=== PATIENT | female | born 1960 | race Caucasian/White ===

== ENCOUNTER 2020-08-30 09:05 | Emergency (ER) | payer OTHER, SELFPAY ==
--- NOTE | ~2020-08-30 | XR_ITS ---
XR knee RT min 4V DATE: 08/30/2020 09:34 INDICATION: Posterior right knee pain. No injury. TECHNIQUE: Standing AP and PA views. Lateral view. [place] view. COMPARISON: None FINDINGS: There is severe osteoarthritis at the patellofemoral joint and mild osteoarthritic change a t the lateral compartment. There is mild chondrocalcinosis. No fracture or dislocation, periosteal reaction or bone destruction. IMPRESSION: Osteoarthritis, particularly at patellofemoral joint Chondrocalcinosis Reviewed, dictated and finalized at location B. SUPERVISOR
[2020-08-30 09:17] VITALS: BP 179/73; PULSE 93; RESP 16; TEMP 37.2; O2SAT 98
[2020-08-30 09:18] VITALS: BP 179/73; PULSE 93; RESP 16; TEMP 37.2; O2SAT 98
--- NOTE | 2020-08-30 09:24 | ED.EXTPRO ---
HPI - Extremity Problem General Chief complaint: Extremity Injury, Lower Stated complaint: R LEG INJURY Time Seen by Provider: 08/30/20 09:25 Source: patient and RN notes reviewed Mode of arrival: ambulatory Limitations: no limitations History of Present Illness HPI Narrative: 59-year-old female presents concern for right knee pain. She denies any known injury. Reports yesterday while working on her feet she began having right knee pain. Reports woke up this morning with worsening pain that radiates the back of the knee down the front of the right leg. Reports knee swelling. Denies redness, bruising. Reports pain at rest and pain with ambulation. Reports taking 800 mg ibuprofen every 5 hours. MD Complaint: extremity pain Related Data Home Medications Medication Instructions Recorded Confirmed No Home Medications 08/30/20 08/30/20 Allergies Allergy/AdvReac Type Severity Reaction Status Date / Time No Known Allergies Allergy Unverified 06/03/16 10:49 Review of Systems Review of Systems: Narrative: CONSTITUTIONAL: Denies malaise, chills, sweats, or fever. CARDIOVASCULAR: Denies chest pain, palpitations, or edema. RESPIRATORY: Denies cough or dyspnea. SKIN: Denies abrasion, laceration MUSCULOSKELETAL: Reports right knee pain and swelling NEUROLOGIC: Denies numbness, weakness. All systems reviewed & are unremarkable except as noted in HPI and below PMFSH Comments At time of signature, agree with nursing past medical, surgical, social and family history. There is no relevant family history pertinent to the presenting complaint Exam Narrative: Exam Narrative: GENERAL: Well-appearing, well-nourished, and in no acute distress. HEAD: Normocephalic, atraumatic. EYES: PERRLA, conjunctivae clear NECK: Supple. CHEST: Speaks in full sentences. No respiratory distress. HEART: Regular rate and rhythm. Normal and equal peripheral pulses. EXTREMITIES: Right knee, right lower leg has normal strength and sensation, normal range of motion. Mild edema, no erythema or ecchymosis. 5/5 strength with knee flexion and extension. Normal sensation with sensitivity to light touch and pain. Anterior tenderness. No open wounds, no skin tenting, no devitalized tissue or atrophy, no trophic changes, no obvious deformity, alignment normal, nearby joints and structures intact. Distal pulses palpable and equal bilaterally, skin warm, dry, pink. Capillary refill less than 3 seconds. Lever test, anterior drawer test, Castro test negative SKIN: Warm, dry, no rash. NEURO: Alert and oriented x3. PSYCH: Normal mood and affect Course Course Emergency Course: Patient is aware of diagnosis, understands and agrees to treatment plan. Anticipatory guidance given. Patient agrees to follow-up as directed and is aware of reasons to seek care at the emergency department. Portions of this record may have been created with voice recognition software Vital Signs Vital signs: Vital Signs Temperature 99 F 08/30/20 09:17 Pulse Rate 93 08/30/20 09:17 Respiratory Rate 16 08/30/20 09:17 Blood Pressure 179/73 H 08/30/20 09:17 Pulse Oximetry 98 08/30/20 09:17 Temperature 99 F 08/30/20 09:18 Pulse Rate 93 08/30/20 09:18 Respiratory Rate 16 08/30/20 09:18 Blood Pressure 179/73 H 08/30/20 09:18 Pulse Oximetry 98 08/30/20 09:18 Reviewed. MDM - Extremity (Nontraumatic) MDM Narrative Medical decision making narrative: Patients pain is consistent with musculoskeletal etiology. No signs of neurological or vascular compromise on exam. Compartments and tissues are soft without signs of compartment syndrome. Pain is felt appropriate for further evaluation on an outpatient basis. Imaging Data My impression: Images reviewed, interpreted by radiologist, agree, see report. Radiologist's impression: XR knee RT min 4V DATE: 08/30/2020 09:34 INDICATION: Posterior right knee pain. No injury. TECHNIQUE: Standing AP and PA views. [place]
== END 2020-08-30 10:05 | disposition home or self-care (01) ==
PROVIDERS: Emergency Provider Nurse Practitioner
DX: M11.261 Other chondrocalcinosis, right knee (principal); M17.11 Unilateral primary osteoarthritis, right knee; I10 Essential (primary) hypertension
CPT/HCPCS: 73564; 99203; G0463

== ENCOUNTER 2024-03-29 12:30 | Outpatient (CLI) | payer OTHER, SELFPAY ==
--- NOTE | ~2024-03-29 | XR_ITS ---
EXAMINATION: XR ankle RT min 3V, XR foot RT min 3V DATE: 03/29/2024 13:00 INDICATION: Right foot pain, swelling and bruising post injury TECHNIQUE: 1. Anteroposterior, mortise, additional oblique and lateral view of the right ankle were obtained. 2. Dorsoplantar, two oblique and lateral views of the right foot were obtained. COMPARISON: None. FINDINGS: Mildly comminuted oblique mid diaphyseal fracture of the right fifth metatarsal with 3 mm medial disp lacement. There is suggestion of an additional nondisplaced avulsion fracture at the dorsal lateral c orner of the anterior process of the calcaneus likely involving the footplate of the bifurcate ligame nt. Otherwise normal alignment throughout the right foot and ankle. No other fractures identified. La rge plantar calcaneal spur and small Achilles calcaneal spur. Additional small enthesophyte along the medial malleolus. Mild hypertrophic change consistent with bunion at the medial head of the first me tatarsal. Mild polyarticular osteoarthritis at the right ankle and multiple joints in the mid and for efoot. Mild soft tissue swelling about the lateral aspect of the forefoot. No ankle joint effusion. IMPRESSION: 1. Mildly displaced and mildly comminuted extra articular diaphyseal fracture of the right fifth meta tarsal. 2. Suggestion of a second nondisplaced avulsion fracture at the dorsolateral margin anterior process of the calcaneus likely involving the footplate of the bifurcate ligament. Correlate for additional p oint tenderness at this location. Reviewed, dictated and finalized at location B. IMPRESSION: 1. Mildly displaced and mildly comminuted extra articular diaphyseal fracture o f the right fifth metatarsal. 2. Suggestion of a second nondisplaced avulsion fracture at the dorsolateral ma rgin anterior process of the calcaneus likely involving the footplate of the bi furcate ligament. Correlate for additional point tenderness at this location.
== END 2024-03-29 12:31 | disposition home or self-care (01) ==
PROVIDERS: Visit Provider Nurse Practitioner Family
DX: M79.671 Pain in right foot (principal)
CPT/HCPCS: 73610; 73630

== ENCOUNTER 2024-03-29 14:30 | Emergency (ER) | payer OTHER, SELFPAY ==
[2024-03-29 14:34] VITALS: BP 150/74; PULSE 75; RESP 18; TEMP 36.6; O2SAT 98
--- NOTE | 2024-03-29 16:35 | ED.LOWEXIN ---
HPI - Extremity Injury (Lower) General Chief Complaint: Extremity Injury, Lower <Jackie Alonso APRN - Last Filed: 03/29/24 17:10> Stated Complaint: Right foot pain <Jackie Alonso APRN - Last Filed: 03/29/24 17:10> Time Seen by Provider: 03/29/24 16:25 <Jackie Alonso APRN - Last Filed: 03/29/24 17:10> Focused HPI: Patient is a 63-year-old female who presents to the ER after falling up the steps 4 days ago. She reports her foot turned black and blue within 24 hours. Patient reports she felt like she was stepping on a ball when she walked, then she looked at the bottom of her foot and it was also swollen and discolored. This morning patient went to urgent care where they told her they would not be able to treat her injuries. She had imaging done at an outside facility and then they advised her to come here for further workup. Patient verbalizes she is fearful of needles and does not want any blood work done. Although images were done at outside hospital HOME COORDINATOR asked patient if she was okay with getting further image performed here and she verbalized her consent. Patient denies any chest pain, shortness a breath, one-sided weakness/numbness/tingling. She reports she does not have any medical history that is pertinent to this ER visit. GENERAL: Well-appearing, well-nourished, and in no acute distress. HEAD: Normocephalic, atraumatic. CHEST: Clear to auscultation. ?No respiratory distress. HEART: Regular rate and rhythm.? NEURO: ?Alert and oriented x3. SKIN: RLE wrapped in foam and gauze dressing. Pt's phalanges are all a purplish-red color, but WMS are intact. She does endorse some mild numbness in her RLE. Her right ankle and foot have bruising and ecchymosis. Pulses in RLE palpable but diminished. Patient screened in triage and initial orders placed.? ?Additional care and disposition to be based upon?diagnostic testing and treatment. <Jackie Alonso APRN - Last Filed: 03/29/24 17:10> Related Data Allergies/Adverse Reactions: Allergies Allergy/AdvReac Type Severity Reaction Status Date / Time Penicillins Allergy Unknown Verified 08/31/20 10:21 <Jackie Alonso ELECTRONIC INSTALLER - Last Filed: 03/29/24 17:10> Review of Systems Review of Systems: CONSTITUTIONAL: Denies fever MUSCULOSKELETAL: Reports joint pain, and myalgia. NEUROLOGIC: Denies numbness, or weakness. <Alina Daley PA-C - Last Filed: 03/29/24 17:43> All systems reviewed & are unremarkable except as noted in HPI and below <Alina Daley PA-C - Last Filed: 03/29/24 17:43> PMFSH Past Medical History Medical History: Medical History (Updated 03/29/24 @ 17:41 by Alina Daley PA-C) Degenerative joint disease of knee Right knee pain <Jackie Alonso, ELECTRONIC INSTALLER - Last Filed: 03/29/24 17:10> Surgical History Surgical History: Surgical History (Updated 08/31/20 @ 10:22 by Cristina Hodge) History of arthroscopy of left knee <Jackie Alonso, ELECTRONIC INSTALLER - Last Filed: 03/29/24 17:10> Family History Family History: Family History (Updated 08/31/20 @ 15:31 by Maddy Elaine, RT(R)) Unknown Hypertension Cancer Arthritis Other Lung cancer <Jackie Alonso, ELECTRONIC INSTALLER - Last Filed: 03/29/24 17:10> Social History Social History: Social History (Updated 08/31/20 @ 15:31 by Maddy Elaine, RT(R)) Smoking status: Never smoker Alcohol intake: never Substance use: never Substance use type: does not use Gender identity (if verbalized by the patient): Female <Jackie Alonso, ELECTRONIC INSTALLER - Last Filed: 03/29/24 17:10> Exam Narrative: GENERAL: Well-appearing, well-nourished, and in no acute distress. HEAD: Normocephalic, atraumatic. EYES: EOMI. EXTREMITIES: Moderate bruising and swelling to the right foot. Normal DP pulse. Normal sensation SKIN: Warm, dry, no rash. NEURO: No focal deficits. Alert and oriented x3. PSYCH: Normal mood and affect <Alina Feng
--- NOTE | 2024-03-29 16:43 | PC.NURSE ---
Pt states she doesn't want pain medication because she hasn't ate all day. snack offered to pt and she states she doesn't want anything and will wait until she gets home
== END 2024-03-29 18:04 | disposition home or self-care (01) ==
PROVIDERS: Emergency Provider Physician Assistant; PCP Internal Medicine
DX: S92.351A Displaced fracture of fifth metatarsal bone, right foot, initial encounter for closed fracture (principal); M17.9 Osteoarthritis of knee, unspecified; W10.9XXA Fall (on) (from) unspecified stairs and steps, initial encounter
CPT/HCPCS: 29515; 73610; 73630; 99283; 99284

== ENCOUNTER 2024-04-28 09:51 | Outpatient (CLI) | payer OTHER, SELFPAY ==
--- NOTE | ~2024-04-28 | XR_ITS ---
Right foot Technique: AP, oblique, and lateral views were obtained. Clinical History: Fifth metatarsal fracture COMPARISON: 03/29/2024 Findings: Subacute oblique fracture of the fifth metatarsal shaft present, with possible early callus formation.. Joint spaces are preserved without erosive or degenerative change. Soft tissues are unre markable. Impression: Subacute oblique fracture of fifth metatarsal shaft, mildly displaced, with possible minimal callus f ormation. Reviewed, dictated and finalized at location M. Impression: Subacute oblique fracture of fifth metatarsal shaft, mildly displaced, with pos sible minimal callus formation.
== END 2024-04-28 09:52 | disposition home or self-care (01) ==
PROVIDERS: PCP Internal Medicine; Visit Provider Orthopaedic Surgery
DX: S92.354D Nondisplaced fracture of fifth metatarsal bone, right foot, subsequent encounter for fracture with routine healing (principal); X58.XXXD Exposure to other specified factors, subsequent encounter
CPT/HCPCS: 73630

== ENCOUNTER 2024-09-30 16:52 | Emergency (ER) | payer OTHER, SELFPAY ==
--- NOTE | ~2024-09-30 | CT_ITS ---
CLINICAL INDICATION: Remote history of a fall, now with left hip pain. COMPARISON: None. TECHNIQUE: Computed tomography (CT) of the pelvis was performed without intravenous contrast. The dos e-length product was 668.21 mGy-cm. FINDINGS/OBSERVATIONS: No acute or subacute left hip fracture is appreciated. Redemonstration of sacralization of the L5 vertebral body, possibly representing a subacute fracture for which MRI is recommended. Colonic diverticulosis without surrounding inflammation. The bladder is decompressed. The uterus is atrophic (or surgically absent).. IMPRESSION: No acute or subacute fracture within the left hip, as detailed above. Reviewed, dictated and finalized at location A.
--- NOTE | ~2024-09-30 | CT_ITS ---
History: Remote history of a fall, now with left hip and pelvic pain PROCEDURE: CT lumbar spine without intravenous contrast. COMPARISON: None TECHNIQUE: Multiple contiguous axial images of the lumbar spine were performed without the administration of int ravenous contrast. DLP: 1105 mGy-cm FINDINGS: Sacralization of L5 is identified, for which MRI is suggested, as this could represent remote ruben jimmy fracture with callus formation. Preservation of the normal lordotic curvature of the lumbar spine is identified. No acute compression fractures are present. No soft tissue abnormality is noted. The air-filled appendix is of normal caliber. Fecal stasis within the colon. Impression: Findings at the level of L5/S1 which may represent remote compression fracture with callus formation for which MRI is suggested. Reviewed, dictated and finalized at location A. Impression: Findings at the level of L5/S1 which may represent remote compression fracture with callus formation for which MRI is suggested.
--- OUTSIDE RECORDS SUMMARY | 2024-09-30 16:55 | XMS_ITS | Continuity of Care Document ---
Author Organization [facility] Address [address] [address] [place] [address] Phone Care Team Providers Care Helper Shear Operator Name Role Phone Jasbir Amado MD Unavailable Unavailable Allergies, Adverse Reactions, Alerts Substance Reaction Status Criticality honey Active No Information Medications Medication Instructions Dosage Effective Dates (start - stop) Status Comments Clifton 7.5 mg-325 mg tablet take 1 tablet by oral route 3 times every day as needed for pain as needed 1 tablet - Active avoid driving or operate machines, please disp on 12/10/17 Cymbalta 30 mg capsule,delayed release take 1 capsule by oral route every day 30 MG - Active Norvasc 10 mg tablet take 1 tablet by oral route every day 10 MG - Active Procedures Procedure Date OFFICE/OUTPATIENT VISIT, EST PREV VISIT, EST, AGE 40-64 OFFICE/OUTPATIENT VISIT, EST OFFICE/OUTPATIENT VISIT, EST OFFICE/OUTPATIENT VISIT, EST OFFICE/OUTPATIENT VISIT, EST OFFICE/OUTPATIENT VISIT, EST OFFICE/OUTPATIENT VISIT, EST PREV VISIT, EST, AGE 40-64 OFFICE/OUTPATIENT VISIT, EST OFFICE/OUTPATIENT VISIT, EST OFFICE/OUTPATIENT VISIT, EST OFFICE/OUTPATIENT VISIT, EST OFFICE/OUTPATIENT VISIT, EST OFFICE/OUTPATIENT VISIT, EST OFFICE/OUTPATIENT VISIT, EST OFFICE/OUTPATIENT VISIT, EST OFFICE/OUTPATIENT VISIT, EST PREV VISIT, EST, AGE 40-64 OFFICE/OUTPATIENT VISIT, EST OFFICE/OUTPATIENT VISIT, EST OFFICE/OUTPATIENT VISIT, EST OFFICE/OUTPATIENT VISIT, EST OFFICE/OUTPATIENT VISIT, EST OFFICE/OUTPATIENT VISIT, EST OFFICE/OUTPATIENT VISIT, EST OFFICE/OUTPATIENT VISIT, EST Advance Directives Directive Yes / No Effective Date File Name No Information Encounters Encounter Description Practice Location Reason(s) For Visit Diagnoses Date Provider Providers Copied on Encounter [facility], [address], [address], tel:[phone] [facility] No Information 8 Aneudy Hamilton [address] [place], [address] , [place]. tel:[phone] OFFICE/OUTPA TIENT VISIT, [facility], [address] [place], [place], [address], [place] tel:[phone] [facility] chronic pain (chief complaint)thyr oid (chief complaint)HTN (chief complaint)anxi ety1 (chief complaint)sick 1 (chief complaint) Essential (primary) hypertensionHyp othyroidismGene ralized Anxiety DisorderChronic pain syndromeDiarrhe a [address], [address] , [place]. tel:[phone] Referring Provider: Christine Mensah A, [place], [address]. tel:[phone] PREV VISIT, EST, AGE 40-64 [facility], [address], [address], [place] tel:[phone] [facility] PHysical (chief complaint) Encounter for general adult medical exam w abnormal findingsChronic pain syndromeGeneral ized Anxiety DisorderEssenti al (primary) hypertension 0 8 Aneudy Hamilton [address], [place], [place], [address] , [place]. tel:[phone] OFFICE/OUTPA TIENT VISIT, [facility], [address], [place], [place], [address], [place] tel:[phone] [facility] chronic pain (chief complaint)thyr oid1 (chief complaint)HTN (chief complaint)anxi ety1 (chief complaint) Essential (primary) hypertensionGen eralized Anxiety DisorderChronic pain syndromeHypothy roidism 8 Aneudy Martell. [address], [address], [place], [place], [address] , [place]. tel:[phone] Referring Provider: Christine Mensah [facility] A, [place], [place], [address]. 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 [address], [place], [place], [address] , [place]. 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 [address], [place], [place], [address] , [place]. tel:[phone] Referring Provider: Christine Mensah [facility] A, [place], [address]. 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 [address], [place], [place], [address] , [place]. tel:[phone] Referring Provider: Christine Mensah [address], [place], [place], [address]. tel:[phone] OFFICE/OUTPA TIENT VISIT, EST [facility], [address], [place], [place], [address], [place] tel:[phone] [facility] HTN (chief complaint)foot and knee pain1 (chief complaint)obes ity1 (chief complaint) Essential (primary) hypertensionIns omniaBody mass index (BMI) 40.0-44.9, adultChronic pain syndrome 7 Aneudy Martell. [address], [place], [place], [address] , [place]. tel:[phone] Referring Provider: Christine Mensah [address], [place], [place], [address]. tel:[phone] PREV VISIT, EST, AGE 40-64 [facility], [address], [place], [place], [address], [place] tel:[phone] [facility] Physical (chief complaint) Encounter for general adult medical exam w abnormal findingsEssenti al (primary) hypertensionPla ntar fasciitisPain in joint 7 Aneudy Martell. [address], [place], [place], [address] , [place]. tel:[phone] Referring Provider: Jasbir Amado [address], [place], [place], [address]. 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 [address], [place], [place], [address] , [place]. tel:[phone] OFFICE/OUTPA TIENT VISIT, [facility], [address], [place], [address], [place] tel:[phone] [facility] HTN (chief complaint)pain (chief complaint)UTI1 (chief complaint) Essential (primary) hypertensionChr onic pain syndromeUrinary tract infection 6 Aneudy Martell. [address], [place], [place], [address] , [place]. tel:[phone] Referring Provider: Christine Mensah [address], [place], [address]. 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 [address], [place], [place], [address] , [place]. tel:[phone] Referring Provider: Christine Mensah [address], [place], [place], [address]. tel:[phone] OFFICE/OUTPA TIENT VISIT, [facility], [address], [place], [address], [place] tel:[phone] [facility] chronic pain (chief complaint) Essential (primary) hypertensionChr onic pain syndrome 6 Aneudy Martell. [address], [place], [address] , [place]. tel:[phone] Referring Provider: Christine Mensah [address], [place], [place], [address]. tel:[phone] OFFICE/OUTPA TIENT VISIT, [facility], [address], [place], [address], [place] tel:[phone] [facility] chronic pain1 (chief complaint)sick 1 (chief complaint)HTN1 (chief complaint) Other chronic painUpper respiratory infectionEssent ial (primary) hypertension 5 5 Aneudy Martell. [address], [place], [place], [address] , [place]. tel:[phone] Referring Provider: Christine Mensah [address], [place], [address]. tel:[phone] OFFICE/OUTPA TIENT VISIT, [facility], [address], [place], [address], [place] tel:[phone] [facility] chronic pain (chief complaint) Pain in limb 5 Aneudy Martell. [address], [place], [address] , [place]. tel:[phone] Referring Provider: Christine Mensah [address], [place], [place], [address]. tel:[phone] OFFICE/OUTPA TIENT VISIT, [facility], [address], [place], [address], [place] tel:[phone] [facility] hyperglycemia (chief complaint)hype rglycemia (chief complaint)HTN (chief complaint) Dietary surveillance and counselingPain in limbUnspecified essential hypertensionOth er and unspecified hyperlipidemiaH yperglycemia 5 Aneudy Martell. [address], [place], [address] , [place]. tel:[phone] Referring Provider: Christine Mens[address], [place], [address]. tel:[phone] OFFICE/OUTPA TIENT VISIT, EST [facility], [address], [place], [address], [place] [phone] [facility] facial trauma (chief complaint)foot pain (chief complaint)HTN (chief complaint) Other and unspecified injury to face and neckDietary surveillance and counselingHyper tension, UnspecifiedPain in limbOpioid type dependence, unspecified use 5 Aneudy Martell. [address], [place], [place], [address] , [place]. [phone] Referring Provider: Christine Mens[address], [place], [place], [address]. tel:[phone] PREV VISIT, EST, AGE 40-64 [facility], [address], [place], [address], [place] tel:[phone] [facility] Physical (chief complaint) Routine Medical ExamObesity, MorbidRoutine Medical Exam 4 Aneudy Martell. [address], [place], [place], [address] , [place]. tel:[phone] Referring Provider: Christine Mensah [address], [place], [place], [address]. tel:[phone] OFFICE/OUTPA TIENT VISIT, EST [facility], [address], [place], [address], [place] tel:[phone] [facility] chronic pain (chief complaint)HTN (chief complaint) Dietary surveillance and counselingCHRON IC PAIN NECHypertension , Unspecified 4 Aneudy Martell. [address], [place], [place], [address] , [place]. tel:[phone] Referring Provider: Christine Mensah [address], [place], [place], [address]. tel:[phone] OFFICE/OUTPA TIENT VISIT, [facility], [address], [place], [place], [address], [place] tel:[phone] [facility] chronic pain (chief complaint) Dietary surveillance and counselingCHRON IC PAIN NEC 4 Aneudy Martell. [address], [place], [place], [address] , [place]. tel:[phone] Referring Provider: Jasbir Amado, [address], [place], [place], [address]. tel:[phone] OFFICE/OUTPA TIENT VISIT, [facility], [address], [place], [place], [address], [place] tel:[phone] [facility] CHRONIC PAIN (chief complaint) Dietary surveillance and counselingCHRON IC PAIN NEC 4 Aneudy Martell. [address], [place], [place], [address] , [place]. [phone] Referring Provider: Christine Mensah [address], [place], [place], [address]. tel:[phone] OFFICE/OUTPA TIENT VISIT, [facility], [address], [place], [place], [address], [place] tel:[phone] [facility] chronic foot pain (chief complaint) Dietary surveillance and counselingCHRON IC PAIN NEC 3 Aneudy Martell. [address], [place], [place], [address] , [place]. [phone] Referring Provider: Christine Mensah [address], [place], [address]. tel:[phone] OFFICE/OUTPA TIENT VISIT, [facility], [address], [place], [address], [place] tel:[phone] [facility] heel pain (chief complaint) Dietary surveillance and counselingCHRON IC PAIN NEC 3 Aneudy Martell. [address], [place], [address] , [place]. [phone] Referring Provider: Christine Mensah [address], [place], [place], [address]. tel:[phone] OFFICE/OUTPA TIENT VISIT, [facility], [address], [place], [address], [place] tel:[phone] [facility] Heel pain (chief complaint) Dietary surveillance and counselingCHRON IC PAIN NEC 3 Aneudy Martell. [address], [place], [place], [address] , [place]. tel:[phone] Referring Provider: Jasbir Amado [address], [place], [place], [address]. tel:[phone] OFFICE/OUTPA TIENT VISIT, [facility], [address], [place], [address], [place] tel:[phone] [facility] stressed out (chief complaint) Dietary surveillance and counselingGener alized anxiety disorder 3 Aneudy Martell. [address], [place], [place], [address] , [place]. tel:[phone] Referring Provider: Christine Mensah [address], [place], [place], [address]. tel:[phone] OFFICE/OUTPA TIENT VISIT, [facility], [address], [place], [address], [place] tel:[phone] [facility] heel pain (chief complaint) Dietary surveillance and counselingCHRON IC PAIN NEC 2 Aneudy Martell. [address], [place], [place], [address] , [place]. tel:[phone] Family History Family Member Type Diagnosis Age At Onset Father Problem (finding) Cancer, lung Brother Problem (finding) Alive and well Mother Problem (finding) RA, Payers Payer name Insurance type Covered alliance party ID Authoriza tion(s) No Information Social History Type Description Quantity Date Captured Comments Sex Female Smoking Status No Information Chief Complaint And Reason For Visit No Information Plan Of Treatment Date Type Action Status Goal Lipid panel. Due on 018 due Goal Influenza vaccine. Due on due Goal Pap/HPV testing. Due on due Goal Depression screening. Due on due Goal Td vaccine. Due on 18 due Goal Mammogram. Due on 8 due Goal Colonoscopy. Due on due Goal Sigmoidoscopy. Due on due Goal Tdap. Due on due Goal FOBT. Due on due Goal Special diet education compl eted Goal FOBT. Due on due Goal Tdap. Due on due Goal Sigmoidoscopy. Due on due Goal Colonoscopy. Due on due Goal Mammogram. Due on 8 due Goal Td vaccine. Due on 18 due Goal Depression screening. Due on due Goal Pap/HPV testing. Due on due Goal Influenza vaccine. Due on due Goal Lipid panel. Due on due Goal Special diet education compl eted Goal Influenza vaccine. Due on due Goal Pap/HPV testing. Due on due Goal Depression screening. Due on due Goal Td vaccine. Due on 18 due Goal Mammogram. Due on 8 due Goal Colonoscopy. Due on due Goal Sigmoidoscopy. Due on due Goal Tdap. Due on due Goal FOBT. Due on due Goal FOBT. Due on due Goal Tdap. Due on due Goal Mammogram. Due on due Goal Pap/HPV testing. Due on due Goal Colonoscopy. Due on due Goal Sigmoidoscopy. Due on due Goal Influenza vaccine. Due on due Goal Td vaccine. Due on due Goal Depression screening. Due on due Goal Td vaccine. Due on due Goal Tdap. Due on due Goal FOBT. Due on due Goal Colonoscopy. Due on due Goal Influenza vaccine. Due on due Goal Sigmoidoscopy. Due on due Goal Depression screening. Due on due Goal Pap/HPV testing. Due on due Goal Mammogram. Due on due Goal Colonoscopy. Due on due Goal Tdap. Due on due Goal Mammogram. Due on due Goal Pap/HPV testing. Due on due Goal FOBT. Due on due Goal Sigmoidoscopy. Due on due Goal Depression screening. Due on due Goal Influenza vaccine. Due on due Goal Td vaccine. Due on due Goal Colonoscopy. Due on due Goal Sigmoidoscopy. Due on due Goal Depression screening. Due on due Goal Influenza vaccine. Due on due Goal Tdap. Due on due Goal FOBT. Due on due Goal Pap/HPV testing. Due on due Goal Td vaccine. Due on 17 due Goal Mammogram. Due on 7 due Goal Influenza vaccine. Due on due Goal Mammogram. Due on due Goal Colonoscopy. Due on 017 due Goal FOBT. Due on due Goal Tdap. Due on due Goal Td vaccine. Due on 17 due Goal Pap/HPV testing. Due on due Goal Sigmoidoscopy. Due on due Goal Depression screening. Due on due Goal Depression screening. Due on due Goal Td vaccine. Due on 16 due Goal Sigmoidoscopy. Due on due Goal Colonoscopy. Due on 016 due Goal Pap/HPV testing. Due on due Goal Tdap. Due on due Goal Influenza vaccine. Due on due Goal Mammogram. Due on 6 due Goal FOBT. Due on due Goal Tdap. Due on due Goal Depression screening. Due on due Goal Sigmoidoscopy. Due on due Goal Pap/HPV testing. Due on due Goal Mammogram. Due on 6 due Goal Td vaccine. Due on 16 due Goal Influenza vaccine. Due on due Goal FOBT. Due on due Goal Colonoscopy. Due on due Goal Influenza vaccine. Due on due Goal Mammogram. Due on 6 due Goal Tdap. Due on due Goal FOBT. Due on due Goal Pap/HPV testing. Due on due Goal Sigmoidoscopy. Due on due Goal Td vaccine. Due on 16 due Goal Depression screening. Due on due Goal Colonoscopy. Due on due Goal Pap/HPV testing. Due on due Goal Tdap. Due on due Goal FOBT. Due on due Goal Colonoscopy. Due on due Goal Sigmoidoscopy. Due on due Goal Influenza vaccine. Due on due Goal Depression screening. Due on due Goal Td vaccine. Due on 16 due Goal Mammogram. Due on 6 due Goal Sigmoidoscopy. Due on due Goal Mammogram. Due on 5 due Goal FOBT. Due on due Goal Pap/HPV testing. Due on due Goal Td vaccine. Due on 15 due Goal Colonoscopy. Due on due Goal Depression screening. Due on due Goal Influenza vaccine. Due on due Goal Tdap. Due on due Goal Sigmoidoscopy. Due on due Goal Depression screening. Due on due Goal Tdap. Due on due Goal FOBT. Due on due Goal Pap/HPV testing. Due on due Goal Mammogram. Due on due Goal Influenza vaccine. Due on due Goal Colonoscopy. Due on due Goal Td vaccine. Due on 15 due Goal Colonoscopy. Due on due Goal Mammogram. Due on due Goal Depression screening. Due on due Goal FOBT. Due on due Goal Influenza vaccine. Due on due Goal Pap/HPV testing. Due on due Goal Sigmoidoscopy. Due on due Goal Td vaccine. Due on 15 due Goal Tdap. Due on due Referral Ordered: KNEE XRAY TWO-VIEW Bilateral ordered Referral Ordered: FOOT XRAY, TWO VIEW ordered History Of Present Illness Encounter Date Complaint History Of Prese nt Illness sick1 Pt c/o low pelvi c pain within 15 mins post food and she has nonbloody diarrhea afterward for the past several weeks. Pt denies any nausea, vomiting, upper abdominal pain. Pt feels crampy type of pain. pt denies any sick contact Pt denies any recent travel. chronic pain Pt has chronic f oot and ankle pain. Pt has overuse injury thyroid Pt has normal TS H and tpo HTN Her BP is stable with norvasc anxiety1 Pt has chronic a nxiety and depression. Pt states that cymbalta helps. Pt denies any suicidal or homicidal thought. Pt denies any crying spells PHysical Pt needs annual physical. Pt has chronic knee and ankle and foot pain Pt has arthritis on her knee. pt could not afford x-rays pt is noncompliant with norvasc. Her BP is high. Pt has not been taking it. Pt also has anxiety and depression due to stress. Pt denies any suicidal or homicidal thought. Pt has not been taking cymbalta. Pt denies any other complaints. anxiety1 Pt has anxiety a nd depression. Pt has a lot of stress. Pt denies any suicidal or homicidal thought. Pt has crying spells. Her mom is at long term. HTN Pt has HTN. Pt s till not taking norvac daily. Pt denies any chest pain or headache thyroid1 Pt has low thyro id. Pt denies any fatigue or weigth gain. Pt still has not done thyroid lab yet chronic pain Pt has chronic f oot and knee pain. Pt has DDD Pt still has not done xray for her foot yet. 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 Pt denies any swelling anxieyt1 Pt feels very an x[place] and she feels depressed also. her mom is in long term and her daughter is having marital issues. Pt denies any suicidal or homicidal thought. pt has been having crying spells hypothyroidism Pt has low thyro id. Pt denies any fatigue or weight gain. pt still has not done lab yet chronic pain Pt has chronic k nee and foot pain. Pt is a cocktail server all her life. Pt denies any injury. Pt has chronic overuse pain. Pt takes norco PRn for pain. pt denies any other compalints. Pt has not doen knee and foot xray yet. Pt denies any worsening pain. Pt failed NSAID HTN Pt has HTN. Pt d oes not takes norvasc daily. Pt is noncompliant. pt denies any chest pain or headache HTN Pt takes norvasc and her BP is slightly high. Pt denies any chest pain. Pt denies any headache Pt has al ot of stress low thyroid1 Pt has low thyro id. Pt has not done thyroid lab yet. pt denies any fatigue Pt denies any snoring or any trouble with breathing chronic pain Pt has knee and foot pain. Pt takes norco PRN for pain. Pt denies any worsening pain. Pt has not done xray yet. Pt could not afford it. Pt denies any worsenign pain Pt is a cocktail server and is on her feet all day. Pt has ankle and knee pain, Pt denies any swelling or any injury HLP Pt has mild HLP Pt is not any any diet thyroid1 Pt has mild low thyroid. Pt has hard time losing weight. Pt denies any fatigue vitmain D Pt has low vitam in D obesity1 Pt has only took phentermine for 4 days. Pt states that she has some tongue blisters due to stress for 2-3 weeks. Pt denies any bleeding chronic pain1 Pt has chronic k nee and foot pain. Pt still has not done xrays yet. Pt denies any worsenign pain. insomnia1 Pt has insomnia. Pt denies any snoring. Pt has not tried vistaril yet. Pt has severe anxiety due to stress. Her mom is in rehab and she has a lot of stress at home. Pt denies any depression or any suicidal thought obesity1 Pt is obese. Her BMI is over 40. Pt denies any snoring or trouble with breathing at night Pt has some difficulty wfalling alseep. Pt feels fatigue in the morning. No chest pian or sob foot and knee pain1 Pt has chron ic bilateral foot pain Pt has knee pain. Pt denies any swelling or injury Pt denies any wrosening pain Pt works on her feet all day. Pt takes norco for pain pt failed NSAID HTN Pt has HTN. Pt d enies any chest pain or headache. Pt has not been taking norvasc for several week. Pt feels stressed out and anxious about her mom situation and she just forgot about it. Physical Pt needs annual physical. Pt has chornic bilateral knee and bilatearl foot pain due to overuse. Pt c/o painful bottom of left foot pain for 3 weeks. Pt denies any injury. Pt states that the pain is worse after weight bearing all day. Pt has HTN. Pt takes norvasc and her BP is stable. Pt denies any other complaints HTN Pt takes norvsc and her BP is stable. Pt denies any swelling or chest pain chronic pain Pt has chornic a nkle and foot pain. Pt is a cocktail server and she has chornic overuse injury. Pt still has not done xray yet. Pt denies any wrosening pain HTN Pt has not been taking norvasc. Her BP is slightly high Pt denies any chest pain or headache pain Pt has chronic f oot and ankle pain. Pt does not have insurance and unable to afford xrays. Pt works as a cocktail server and is on her feet frequently UTI1 Pt c/u buring, f requency with urination for 4 days. pt denies any abd pain or flank pain. Pt is taking OTC azors chronic pain Pt has chronic f oot and ankle pain. Pt taeks pain meds. Pt canot afford xrays. Pt denies any wrosenign pain. Pt is a cocktail server and works on her feet all day HTN Pt has HTN. Pt d enies any chest pain or headache. Pt used to take BP meds but not anymore. chronic pain Pt has chronic a nkle and foot and knee pain. Pt takes pain meds Pt denies any NSAID Pt has not done xray yet. Pt denies any wrosening pain. Pt denies any swelling HTN1 Pt has not been taking lisinopril for 3 months. Her BP is good today sick1 Pt has been sick for two weeks with sinus congestion, sore throat, coughing up green phlem, chill, etc. Pt has been taking OTC meds but not working. Pt denies any fever chronic pain1 Pt has chornic b ilateral knee and ankle pain. Pt denies any worening pain. Pt denies any swelling. Pt is a cocktail server and she is on her feet all day at work. chronic pain Pt has chronic b oth knee pain Pt had history of left knee surgery. Pt has chornic bilateral ankle pain. Pt denies any worsening pain. Pt denies any injury HTN Pt has HTN. Pt t akes lisinopril. Her BP is high today. Pt denies any chest pain or headahe hyperglycemia Pt has mild hype rglycemia. Pt denies any polyuria, polydipsia hyperglycemia Pt has chronic f oot pain. Pt denies any worsening pain Instructions Date Instruction Additional Infor mation Special diet education Related t o Body mass index (BMI) 39.0-39.9, adult Increase activity. Related to Es sential (primary) hypertension Follow a low sodium diet. Relate d to Essential (primary) hypertension Weight management Related to Enc ounter for general adult medical exam w abnormal findings Increase physical activity Relat ed to Encounter for general adult medical exam w abnormal findings Special diet education Related t o Body mass index (BMI) 40.0-44.9, adult Follow a low sodium diet. Relate d to Essential (primary) hypertension Prescribed Activity and Exercise Education Related to Dietary Surveillance and Counseling Prescribed Diet Educ ation/Lifestyle Education Regarding Diet Related to Dietary Surveillance and Counseling Increase activity. Related to Es sential (primary) hypertension Prescribed Diet Educ ation/Lifestyle Education Regarding Diet Related to Dietary Surveillance and Counseling Increase physical activity Relat ed to Hypothyroidism Weight management Related to Hyp othyroidism Prescribed Activity and Exercise Education Related to Dietary Surveillance and Counseling Follow a low sodium diet. Relate d to Essential (primary) hypertension Increase activity. Related to Es sential (primary) hypertension Prescribed Diet Educ ation/Lifestyle Education Regarding Diet Related to Dietary Surveillance and Counseling Prescribed Activity and Exercise Education Related to Dietary Surveillance and Counseling Prescribed Activity and Exercise Education Related to Dietary Surveillance and Counseling Prescribed Diet Educ ation/Lifestyle Education Regarding Diet Related to Dietary Surveillance and Counseling Increase activity. Related to Hy perlipidemia Follow a low sodium diet. Relate d to Hyperlipidemia Prescribed Activity and Exercise Education Related to Dietary Surveillance and Counseling Prescribed Diet Educ ation/Lifestyle Education Regarding Diet Related to Dietary Surveillance and Counseling Prescribed Activity and Exercise Education Related to Dietary Surveillance and Counseling Prescribed Diet Educ ation/Lifestyle Education Regarding Diet Related to Dietary Surveillance and Counseling Prescribed Activity and Exercise Education Related to Dietary Surveillance and Counseling Prescribed Diet Educ ation/Lifestyle Education Regarding Diet Related to Dietary Surveillance and Counseling Prescribed Activity and Exercise Education Related to Dietary Surveillance and Counseling Prescribed Diet Educ ation/Lifestyle Education Regarding Diet Related to Dietary Surveillance and Counseling Prescribed Activity and Exercise Education Related to Dietary Surveillance and Counseling Prescribed Diet Educ ation/Lifestyle Education Regarding Diet Related to Dietary Surveillance and Counseling Prescribed Activity and Exercise Education Related to Dietary Surveillance and Counseling Prescribed Diet Educ ation/Lifestyle Education Regarding Diet Related to Dietary Surveillance and Counseling Prescribed Diet Educ ation/Lifestyle Education Regarding Diet Related to Dietary Surveillance and Counseling Prescribed Activity and Exercise Education Related to Dietary Surveillance and Counseling Prescribed Diet Educ ation/Lifestyle Education Regarding Diet Related to Dietary Surveillance and Counseling Prescribed Activity and Exercise Education Related to Dietary Surveillance and Counseling Physical activity counseling Rel ated to Dietary surveillance counseling Physical activity counseling Rel ated to Dietary surveillance counseling Decrease caloric intake Related to Dietary surveillance counseling Dietary counseling Related to Mo rbid obesity, BMI 40 or more Decrease caloric intake Related to Morbid obesity, BMI 40 or more Dietary counseling Related to Di etary surveillance counseling Decrease caloric intake Related to Dietary surveillance counseling Dietary counseling Related to Di etary surveillance counseling Decrease caloric intake Related to Dietary surveillance counseling Decrease caloric intake Related to Dietary surveillance counseling Dietary counseling Related to Di etary surveillance counseling Dietary counseling Related to Di etary surveillance counseling Decrease caloric intake Related to Dietary surveillance counseling Dietary counseling Related to Di etary surveillance counseling Decrease caloric intake Related to Dietary surveillance counseling Dietary counseling Related to Di etary surveillance counseling Decrease caloric intake Related to Dietary surveillance counseling Dietary counseling Related to Di etary surveillance counseling Decrease caloric intake Related to Dietary surveillance counseling Dietary counseling Related to Di etary surveillance counseling Decrease caloric intake Related to Dietary surveillance counseling Assessments Type Assessment Date No Information
[2024-09-30 17:47] VITALS: BP 147/84; PULSE 100; RESP 16; TEMP 36.7; O2SAT 100
--- NOTE | 2024-09-30 17:52 | ED_ITS ---
HPI - Extremity Injury (Lower) General Chief Complaint: Extremity Injury, Lower <Hannah Cronin PA-C - Last Filed: 09/30/24 18:09> Stated Complaint: Pain left hip-poss Sciatica-fell 3 weeks ago <ARJUN Lu Last Filed: 09/30/24 18:09> Time Seen by Provider: 09/30/24 17:52 <ARJUN Lu Last Filed: 09/30/24 18:09> Focused HPI: Patient is a 63-year-old female who presents the ED with report of left hip pain. Patient reports she slipped in the mud and fell 3 weeks ago, landing directly on her buttocks. Has been having pain throughout her left posterior hip /pelvic region/lower back since then. 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 Has been taking leftover tramadol as needed for pain. Has not had anything further for pain. Denies numbness, bowel or bladder incontinence, saddle anesthesia. GENERAL: Mildly uncomfortable-appearing, obese with BMI of 36.7, and in no acute distress. HEAD: Normocephalic, atraumatic. CHEST: Clear to auscultation. ?No respiratory distress. HEART: Regular rate and rhythm.? MSK: TTP in L posterior hip/pelvic/SI region. No midline spinal tenderness. No palpable bony deformities or step-offs. Sensation intact. NEURO: ?Alert and oriented x3. Patient screened in triage and initial orders placed.? ?Additional care and disposition to be based upon?diagnostic testing and treatment. <Hannah Cronin PA-C - Last Filed: 09/30/24 18:09> Source: patient <ARJUN Lu Last Filed: 09/30/24 18:09> Mode of arrival: ambulatory <ARJUN Lu Last Filed: 09/30/24 18:09> Limitations: no limitations <ARJUN Lu Last Filed: 09/30/24 18:09> History of Present Illness HPI Narrative: Patient is a 63-year-old female who presents emergency department chief complaint of left hip pain. Patient reports the pain is right over her iliac crest patient denies saddle anesthesia denies bowel or bladder incontinence denies footdrop. The patient states that the pain has become severe reports that it is difficult ambulated times and reports that it is worse whenever she sits down <Suleman Starr MD - Last Filed: 09/30/24 20:55> Related Data Home Medications: Home Medications ?Medication ?Instructions ?Recorded ?Confirmed ?Last Taken ?Type tramadol 25 mg tablet 25 mg PO Q6H PRN 05/26/24 05/26/24 Unknown History <Hannah Cronin PA-C - Last Filed: 09/30/24 18:09> Allergies/Adverse Reactions: Allergies Allergy/AdvReac Type Severity Reaction Status Date / Time Penicillins Allergy Unknown Verified 09/30/24 16:54 <Hannah Cronin PA-C - Last Filed: 09/30/24 18:09> Review of Systems Review of Systems: A 10 system review of systems was completed on the patient and is negative except for what is stated in the HPI. Nursing and ancillary documentation was reviewed. <Suleman Starr MD - Last Filed: 09/30/24 20:55> PMFSH Past Medical History Medical History: Medical History Degenerative joint disease of knee Right knee pain <Hannah Cronin PA-C - Last Filed: 09/30/24 18:09> Surgical History Surgical History: Surgical History History of arthroscopy of left knee <Hannah Cronin PA-C - Last Filed: 09/30/24 18:09> Family History Family History: Family History Unknown Hypertension Cancer Arthritis Other Lung cancer <Hannah Cronin PA-C - Last Filed: 09/30/24 18:09> Social History Social History: Social History Smoking status: Never smoker Alcohol intake: never Substance use: never Substance use type: does not use Do You Feel Safe in your Home?: Yes Lack of Transportation: No Lack of Food: Never True Current Housing: I Have Housing Concerned About Future Housing: No Difficulty Paying Gas/Electric Bills: No Difficulty Paying for Meds: No Currently Unemployed: No Education: High School Diploma/GED Difficulty w/ Childcare or Family Care: No Gender identity (if verbalized by the patient): Female <Hannah Cronin PA-C - Last Filed: 09/30/24 18:09> Exam Narrative: GENERAL: Well-appearing, well-nourished, and in no acute distress. HEAD: Normocephalic, atraumatic. EYES: PERRLA and EOMI. ENT: Nares clear, no rhinorrhea or epistaxis. Mucous membranes moist. NECK: Supple. CHEST: Clear to auscultation. No respiratory distress. HEART: Regular rate and rhythm. No murmur heard. Normal peripheral pulses. ABDOMEN: Soft, nontender, nondistended, normal active bowel sounds. EXTREMITIES: Normal range of motion. No edema. SKIN: Warm, dry, no rash. NEURO: No focal deficits. Alert and oriented x3. No saddle anesthesia PSYCH: Normal mood and affect. <Suleman Starr MD - Last Filed: 09/30/24 20:55> Course Vital Signs Vital signs: Vital Signs Temperature 36.7 C 09/30/24 17:47 Pulse Rate 100 09/30/24 17:47 Respiratory Rate 16 09/30/24 17:47 Blood Pressure 147/84 H 09/30/24 17:47 Pulse Oximetry 100 09/30/24 17:47 Oxygen Delivery Room Air 09/30/24 17:47 Temperature 36.7 C 09/30/24 17:47 Pulse Rate 100 09/30/24 17:47 Respiratory Rate 16 09/30/24 17:47 Blood Pressure 147/84 H 09/30/24 17:47 Pulse Oximetry 100 09/30/24 17:47 Oxygen Delivery Room Air 09/30/24 17:47 <Hannah Cronin PA-C - Last Filed: 09/30/24 18:09> Vital Signs Temperature 36.7 C 09/30/24 17:47 Pulse Rate 100 09/30/24 17:47 Respiratory Rate 16 09/30/24 17:47 Blood Pressure 147/84 H 09/30/24 17:47 Pulse Oximetry 100 09/30/24 17:47 Oxygen Delivery Room Air 09/30/24 17:47 Temperature 36.7 C 09/30/24 17:47 Pulse Rate 100 09/30/24 17:47 Respiratory Rate 16 09/30/24 17:47 Blood Pressure 147/84 H 09/30/24 17:47 Pulse Oximetry 100 09/30/24 17:47 Oxygen Delivery Room Air 09/30/24 17:47 <Suleman Starr MD - Last Filed: 09/30/24 20:55> MDM - Extremity Injury (Lower) MDM Narrative Medical decision making narrative: MSE by CARSON in triage. <Hannah Cronin PA-C - Last Filed: 09/30/24 18:09> MSE by CARSON in triage. Differential diagnosis includes fracture, contusion, sciatica Patient shows no acute focal neurological deficit at this time CT scan showed evidence of a abnormality at L5 and S1 this could be compression fracture versus possible mass the case was discussed with Neurosurgery who recommend urgent MRI with and without contrast of the lumbar spine In further discussion with the patient patient has opted to go home and do outpatient follow-up even though she was explained the patient that we could expedite an MRI and also expedite seeing Neurosurgery the patient states she would rather go home was expressed to the patient that after neurosurgery reviewed the images there was a possibility of a mass at the site <Suleman Starr MD - Last Filed: 09/30/24 20:55> Discharge Plan Discharge Clinical Impression: Low back pain, Compression fracture of L5 vertebra <Hannah Cronin PA-C - Last Filed: 09/30/24 18:09> Patient Disposition: Home, Self-Care <Hannah Cronin PA-C - Last Filed: 09/30/24 18:09> Condition: Stable <ARJUN Lu Last Filed: 09/30/24 18:09> Instructions: Antibiotic Form, Vertebral Compression Fracture (ED), Acute Low Back Pain (ED) <Hannah Cronin PA-C - Last Filed: 09/30/24 18:09> Additional Instructions: The CT scan showed a compression fracture versus a mass at L5-S1 area it is recommended that you have an MRI with and without contrast of her lumbar spine you were offered admission to expedite the workup of this but you may call your primary care provider in the morning to schedule the study as soon as possible <Hannah Cronin PA-C - Last Filed: 09/30/24 18:09> Patient Language: Moroccan <Hannah Cronin PA-C - Last Filed: 09/30/24 18:09> Prescriptions: New hydrocodone-acetaminophen 5-325 mg tablet 1 tablet PO Q6H PRN (Reason: pain) 3 Days Qty: 12 0RF orphenadrine citrate 100 mg tablet extended release 100 mg PO Q12H PRN (Reason: muscle pain) Qty: 30 0RF No Action tramadol 25 mg tablet 25 mg PO Q6H PRN <Hannah Cronin PA-C - Last Filed: 09/30/24 18:09> Follow-up/Referrals: Singh,MD Gm [Primary Care Provider] - Erica Melara MD [Physician] - <Hannah Cronin PA-C - Last Filed: 09/30/24 18:09> Time of Disposition: 20:50 <Hannah Cronin PA-C - Last Filed: 09/30/24 18:09> 20:50 <Suleman Starr MD - Last Filed: 09/30/24 20:55>
[2024-09-30] MEDS: KETOROLAC (*BKC) 60 MG/2 ML VIAL IM (19:48)
[2024-09-30] MEDS: ACETAMINOPHEN 500 MG TABLET 1000 MG PO (19:49)
[2024-09-30] MEDS: CYCLOBENZAPRINE HCL 5 MG TABLET PO (19:49)
--- OUTSIDE RECORDS SUMMARY | 2024-09-30 20:38 | XMS_ITS | Continuity of Care Document ---
Author Organization [facility] Address [address] [place] [address] [place] [address] Phone Care Team Providers Care Control Director Name Role Phone Jasbir Amado MD Unavailable Unavailable Allergies, Adverse Reactions, Alerts Substance Reaction Status Criticality honey Active No Information Medications Medication Instructions Dosage Effective Dates (start - stop) Status Comments [employer] 7.5 mg-325 mg tablet take 1 tablet [...] Diagnoses Date Provider Providers Copied on Encounter [facility], [address] [place], [address], tel:[phone] [facility] No Information 8 Aneudy Hamilton [address] [place], [address] , [place]. tel:[phone] OFFICE/OUTPA TIENT VISIT, [facility], [address] [place], [place], [address], [place] tel:[phone] [facility] chronic pain (chief complaint)thyr oid (chief complaint)HTN (chief complaint)anxi ety1 (chief complaint)sick 1 (chief complaint) Essential (primary) hypertensionHyp othyroidismGene ralized Anxiety DisorderChronic pain syndromeDiarrhe a [address], [address] , [place]. tel:[phone] Referring Provider: Christine Mensah A, [place], [place], [address]. tel:[phone] PREV VISIT, EST, AGE 40-64 [facility], [address] [place], [address], [place] tel:[phone] [facility] PHysical (chief complaint) Encounter for general adult medical exam w abnormal findingsChronic pain syndromeGeneral ized Anxiety DisorderEssenti al (primary) hypertension 0 8 Aneudy Hamilton [address], [place], [place], [address] , [place]. tel:[phone] OFFICE/OUTPA TIENT VISIT, [facility], [address], [place], [place], [address], [place] tel:[phone] [facility] chronic pain (chief complaint)thyr oid1 (chief complaint)HTN (chief complaint)anxi ety1 (chief complaint) Essential (primary) hypertensionGen eralized Anxiety DisorderChronic pain syndromeHypothy roidism 8 Aneudy Martell. [address], [place], [place], [address] , [place]. tel:[phone] Referring Provider: Christine Mensah [facility] A, [place], [place], [address]. 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 [address], [place], [place], [address] , [place]. 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 [address], [place], [place], [address] , [place]. tel:[phone] Referring Provider: Christine Mensah [facility] A, [place], [place], [address]. 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 [address], [place], [place], [address] , [place]. tel:[phone] Referring Provider: Christine Mensah [address], [place], [place], [address]. tel:[phone] OFFICE/OUTPA TIENT VISIT, EST [facility], [address], [place], [place], [address], [place] tel:[phone] [facility] HTN (chief complaint)foot and knee pain1 (chief complaint)obes ity1 (chief complaint) Essential (primary) hypertensionIns omniaBody mass index (BMI) 40.0-44.9, adultChronic pain syndrome 7 Aneudy Martell. [address], [place], [place], [address] , [place]. tel:[phone] Referring Provider: Christine Mensah [address], [place], [place], [address]. tel:[phone] PREV VISIT, EST, AGE 40-64 [facility], [address], [place], [place], [address], [place] tel:[phone] [facility] Medicine Physical (chief complaint) Encounter for general adult medical exam w abnormal findingsEssenti al (primary) hypertensionPla ntar fasciitisPain in joint 7 Aneudy Martell. [address], [place], [place], [address] , [place]. tel:[phone] Referring Provider: Jasbir Amado [address], [place], [place], [address]. 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 [address], [place], [place], [address] , [place]. tel:[phone] OFFICE/OUTPA TIENT VISIT, [facility], [address], [place], [place], [address], [place] tel:[phone] [facility] HTN (chief complaint)pain (chief complaint)UTI1 (chief complaint) Essential (primary) hypertensionChr onic pain syndromeUrinary tract infection 6 Aneudy Martell. [address], [place], [place], [address] , [place]. tel:[phone] Referring Provider: Christine Mensah [address], [place], [place], [address]. 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 [address], [place], [place], [address] , [place]. tel:[phone] Referring Provider: Christine Mensah [address], [place], [place], [address]. tel:[phone] OFFICE/OUTPA TIENT VISIT, [facility], [address], [place], [address], [place] tel:[phone] [facility] chronic pain (chief complaint) Essential (primary) hypertensionChr onic pain syndrome 6 Aneudy Martell. [address], [place], [place], [address] , [place]. tel:[phone] Referring Provider: Christine Mensah [address], [place], [place], [address]. tel:[phone] OFFICE/OUTPA TIENT VISIT, [facility], [address], [place], [place], [address], [place] tel:[phone] [facility] chronic pain1 (chief complaint)sick 1 (chief complaint)HTN1 (chief complaint) Other chronic painUpper respiratory infectionEssent ial (primary) hypertension 5 5 Aneudy Martell. [address], [place], [place], [address] , [place]. tel:[phone] Referring Provider: Christine Mensah [address], [place], [place], [address]. tel:[phone] OFFICE/OUTPA TIENT VISIT, [facility], [address], [place], [place], [address], [place] tel:[phone] [facility] chronic pain (chief complaint) Pain in limb 5 Aneudy Martell. [address], [place], [place], [address] , [place]. tel:[phone] Referring Provider: Christine Mensah [address], [place], [place], [address]. tel:[phone] OFFICE/OUTPA TIENT VISIT, [facility], [address], [place], [place], [address], [place] tel:[phone] [facility] hyperglycemia (chief complaint)hype rglycemia (chief complaint)HTN (chief complaint) Dietary surveillance and counselingPain in limbUnspecified essential hypertensionOth er and unspecified hyperlipidemiaH yperglycemia 5 Aneudy Martell. [address], [place], [place], [address] , [place]. tel:[phone] Referring Provider: Christine Mensah [address], [place], [place], [address]. tel:[phone] OFFICE/OUTPA TIENT VISIT, EST [facility], [address], [place], [address], [place] [phone] [facility] facial trauma (chief complaint)foot pain (chief complaint)HTN (chief complaint) Other and unspecified injury to face and neckDietary surveillance and counselingHyper tension, UnspecifiedPain in limbOpioid type dependence, unspecified use 5 Aneudy Martell. [address], [place], [place], [address] , [place]. [phone] Referring Provider: Christine Mensah [address], [place], [place], [address]. tel:[phone] PREV VISIT, EST, AGE 40-64 [facility], [address], [place], [address], [place] tel:[phone] [facility] Physical (chief complaint) Routine Medical ExamObesity, MorbidRoutine Medical Exam 4 Aneudy Martell. [address], [place], [place], [address] , [place]. tel:[phone] Referring Provider: Christine Mensah [address], [place], [place], [address]. tel:[phone] OFFICE/OUTPA TIENT VISIT, EST [facility], [address], [place], [place], [address], [place] tel:[phone] [facility] chronic pain (chief complaint)HTN (chief complaint) Dietary surveillance and counselingCHRON IC PAIN NECHypertension , Unspecified 4 Aneudy Martell. [address], [place], [place], [address] , [place]. tel:[phone] Referring Provider: Christine Mensah [address], [place], [place], [address]. tel:[phone] OFFICE/OUTPA TIENT VISIT, [facility], [address], [place], [place], [address], [place] tel:[phone] [facility] chronic pain (chief complaint) Dietary surveillance and counselingCHRON IC PAIN NEC 4 Aneudy Martell. [address], [place], [place], [address] , [place]. tel:[phone] Referring Provider: Jasibr Amado, [address], [place], [place], [address]. tel:[phone] OFFICE/OUTPA TIENT VISIT, [facility], [address], [place], [place], [address], [place] tel:[phone] [facility] CHRONIC PAIN (chief complaint) Dietary surveillance and counselingCHRON IC PAIN NEC 4 Aneudy Martell. [address], [place], [place], [address] , [place]. [phone] Referring Provider: Christine Mensah [address], [place], [place], [address]. tel:[phone] OFFICE/OUTPA TIENT VISIT, [facility], [address], [place], [place], [address], [place] tel:[phone] [facility] chronic foot pain (chief complaint) Dietary surveillance and counselingCHRON IC PAIN NEC 3 Aneudy Martell. [address], [place], [place], [address] , [place]. [phone] Referring Provider: Christine Mensah [address], [place], [place], [address]. tel:[phone] OFFICE/OUTPA TIENT VISIT, [facility], [address], [place], [place], [address], [place] tel:[phone] [facility] heel pain (chief complaint) Dietary surveillance and counselingCHRON IC PAIN NEC 3 Aneudy Martell. [address], [place], [place], [address] , [place]. [phone] Referring Provider: Christine Mensah [address], [place], [place], [address]. tel:[phone] OFFICE/OUTPA TIENT VISIT, [facility], [address], [place], [place], [address], [place] tel:[phone] [facility] Heel pain (chief complaint) Dietary surveillance and counselingCHRON IC PAIN NEC 3 Aneudy Martell. [address], [place], [place], [address] , [place]. tel:[phone] Referring Provider: Jasbir Amado [address], [place], [place], [address]. tel:[phone] OFFICE/OUTPA TIENT VISIT, [facility], [address], [place], [place], [address], [place] tel:[phone] [facility] stressed out (chief complaint) Dietary surveillance and counselingGener alized anxiety disorder 3 Aneudy Martell. [address], [place], [place], [address] , [place]. tel:[phone] Referring Provider: Christine Mensah [address], [place], [place], [address]. tel:[phone] OFFICE/OUTPA TIENT VISIT, [facility], [address], [place], [place], [address], [place] tel:[phone] [facility] heel pain (chief complaint) Dietary surveillance and counselingCHRON IC PAIN NEC 2 Aneudy Martell. [address], [place], [place], [address] , [place]. tel:[phone] Family History Family Member Type Diagnosis Age At Onset Father Problem (finding) Cancer, lung Brother Problem (finding) Alive and well Mother Problem (finding) RA, Payers Payer name Insurance type Covered constitution party ID Authoriza tion(s) No Information Social [...] Goal Mammogram. Due on 7 due Goal Colonoscopy. Due on 017 due Goal Sigmoidoscopy. Due on due Goal Depression screening. Due on due Goal Influenza vaccine. Due on due Goal Mammogram. Due on 7 due Goal Colonoscopy. Due on due Goal FOBT. Due on [...] Goal Mammogram. Due on 6 due Goal Colonoscopy. Due on due Goal [...] due Goal Tdap. Due on due Goal Colonoscopy. Due on due Goal Td vaccine. Due on due Goal FOBT. Due on due Goal Pap/HPV testing. Due on due Goal Mammogram. Due on due Goal Influenza vaccine. Due on due Goal Sigmoidoscopy. Due on due Goal Depression screening. Due on due Goal Tdap. Due on due Goal Sigmoidoscopy. Due on due Goal Td vaccine. Due on due Goal Pap/HPV testing. Due on due Goal Influenza vaccine. Due on due Goal FOBT. Due on due Goal Depression screening. Due on due Goal Mammogram. Due on due Goal Colonoscopy. Due on due Goal Tdap. Due on due Referral [...] taking cymbalta. Pt denies any other complaints. chronic pain Pt has chronic f oot and knee pain. Pt has DDD Pt still has not done xray for her foot yet. 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 Pt denies any swelling thyroid1 Pt has low thyro id. Pt denies any fatigue or weigth gain. Pt still has not done thyroid lab yet HTN Pt has HTN. Pt s till not taking norvac daily. Pt denies any chest pain or headache anxiety1 Pt has anxiety a nd depression. Pt has a lot of stress. Pt denies any suicidal or homicidal thought. Pt has crying spells. Her mom is at prison. HTN Pt has HTN. Pt d oes not takes norvasc daily. Pt is noncompliant. pt denies any chest pain or headache chronic pain Pt has chronic k nee and foot pain. Pt is a tower observer all her life. Pt denies any injury. Pt has chronic overuse pain. Pt takes norco PRn for pain. pt denies any other compalints. Pt has not doen knee and foot xray yet. Pt denies any worsening pain. Pt failed NSAID hypothyroidism Pt has low thyro id. Pt denies any fatigue or weight gain. pt still has not done lab yet anxieyt1 Pt feels very an [place] and she feels depressed also. her mom is in prison and her daughter is having marital issues. Pt denies any suicidal or homicidal thought. pt has been having crying spells HTN Pt takes norvasc and her BP [...] denies any worsenign pain Pt is a tower observer and is on her feet all day. [...] denies any depression or any suicidal thought HTN Pt has HTN. Pt d enies any chest pain or headache. Pt has not been taking norvasc for several week. Pt feels stressed out and anxious about her mom situation and she just forgot about it. foot and knee pain1 Pt has chron ic bilateral foot pain Pt has knee pain. Pt denies any swelling or injury Pt denies any wrosening pain Pt works on her feet all day. Pt takes norco for pain pt failed NSAID obesity1 Pt is obese. Her BMI is over 40. Pt denies any snoring or trouble with breathing at night Pt has some difficulty wfalling alseep. Pt feels fatigue in the morning. No chest pian or sob Physical Pt needs annual physical. Pt has [...] nkle and foot pain. Pt is a tower observer and she has chornic overuse injury. Pt still has not done xray yet. Pt denies any wrosening pain HTN Pt has not been taking norvasc. Her BP is slightly high Pt denies any chest pain or headache pain Pt has chronic f oot and ankle pain. Pt does not have insurance and unable to afford xrays. Pt works as a tower observer and is on her feet frequently UTI1 Pt c/u buring, f requency with urination for 4 days. pt denies any abd pain or flank pain. Pt is taking OTC azors HTN Pt has HTN. Pt d enies any chest pain or headache. Pt used to take BP meds but not anymore. chronic pain Pt has chronic f oot and ankle pain. Pt taeks pain meds. Pt canot afford xrays. Pt denies any wrosenign pain. 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 Pt takes pain meds Pt denies any NSAID Pt has not done xray yet. Pt denies any wrosening pain. Pt denies any swelling chronic pain1 Pt has chornic b ilateral knee and ankle pain. Pt denies any worening pain. Pt denies any swelling. Pt is a tower observer and she is on her feet all day at work. sick1 Pt has been sick for two weeks with sinus congestion, sore throat, coughing up green phlem, chill, etc. Pt has been taking OTC meds but not working. Pt denies any fever HTN1 Pt has not been taking lisinopril for 3 months. Her BP is good today chronic pain Pt has chronic b oth knee pain Pt had history of left knee surgery. Pt has chornic bilateral ankle pain. Pt denies any worsening pain. Pt denies any injury hyperglycemia Pt has chronic f oot pain. Pt denies any worsening pain hyperglycemia Pt has mild hype rglycemia. Pt denies any polyuria, polydipsia HTN Pt has HTN. Pt t akes lisinopril. Her BP is high today. Pt denies any chest pain or headahe Instructions Date Instruction Additional Infor mation Special diet education Related t o Body mass index (BMI) 39.0-39.9, adult Increase activity. Related to Es sential (primary) hypertension Follow a low sodium diet. Relate d to Essential (primary) hypertension Increase physical activity Relat ed to Encounter for general adult medical exam w abnormal findings Weight management Related to Enc ounter for [...] Diet Related to Dietary Surveillance and Counseling Physical [...]
--- OUTSIDE RECORDS SUMMARY | 2024-09-30 20:38 | XMS_ITS | Data Portability ---
Author Organization [facility] Main Office Address [address] [place] [address] Assessment Encounter Date Assessment Date Assessment LastModified by Organization Details LastModified Time 09/20/2022 09/20/2022 She refuses to get a CT of the head and it was discussed with her that she could have intracranial pathology that could suddenly decompensate and leave her with permanent neurological problems or even I will get rib x-rays she will see me back in a couple of weeks also chest x-ray have asked her to reconsider CT scan of the head [email or web address] Not available 09/21/2022 14:21:57 Plan of Treatment Reminders Order Date Submit Date Provider Last Modified By Organization Details Last Modified Time Details Appointments None recorded. Lab None recorded. Referral None recorded. Procedures None recorded. Surgeries None recorded. Imaging XR, ribs, unilateral 2022 023 [facility] ([facility]), [address] [place], [address], 3 16:15:07 XR, chest 2022 023 [facility] ([facility]), [address] [place], [address], 3 11:08:15 Medication Orders None recorded. Patient TargetsNo targets recorded. Patient InstructionsNo instructions recorded. Reason for Referral None Reported. Results Created Date Observation Date Name Description Value Unit Range Abnormal Flag Note LastModifiedBy Organization Detail LastModifiedTime 09/09/19 23 elect mary jane diogr am No observ ation record ed. [id number] [facility] [address] [facility] , [place], [address], 09/12/2022 01:27:28 09/09/19 23 09/09/2022 olivier butler am No observ ation record ed. [id number] Z_hrgm_gmg Internal [facility] [address], [place], [address], 09/12/2022 01:27:28 09/21/1909/20/2022 XR, chest [facility] [address], [place] [address] [phone] Patijo t Name: VIPIN CAGE Access ion #: [id number] Sex: F : 1960 4 Locati on: RAD Attend ing Physic aurelio: EDWIN SINGH Orderi ng Physic aurelio: EDWIN SINGH Exam Date: 1:38 PM Exam Name: XR CHEST 2V Admitt ing Diagno sis(es ): RADIOL OGY REPORT - FINAL EXAM: XR CHEST 2V HISTOR Y: PLEURO DYNIA trauma COMPAR LEANNA: None. TECHNI QUE: Two views of the chest were perfor med. FINDIN GS: No pneumo thorax , consol idativ e infilt rates, pleura l effusi ons, or pulmon praful edema. The heart is not enlarg ed. IMPRES ALEXIA: Unrema rkable 2 view chest. Page 1 [facility] 2 [facility] Michelle t Name: VIPIN CAGE Access ion #: [id number] Sex: F : 1960 4 Exam Date: 1:38 PM Exam Name: XR CHEST 2V Admitt ing Diagno sis(es ): Create d and electr onical ly signed by: Han de la fuente MD Signed Date: 3:11 PM (CT) Dictat ed by: Han del a fuente MD DD: 3:11 PM (CT) DT: 3/10/2 023 3:11 PM (CT) Page 2 of 2 cyl [facility] (Imaging) [address] [place], [address], 10/04/2022 11:08:14 09/21/19 23 09/20/2022 XR, ribs, unila teral [facility] [address] [facility] [place] [address] Patien t Name: VIPIN CAGE Access ion #: [id number] Sex: F : 1960 4 Locati on: RAD Attend ing Physic aurelio: EDWIN SINGH Orderi ng Physic aurelio: EDWIN SINGH Exam Date: 3:02 PM Exam Name: XR RIBS LT WO CHEST Admitt ing Diagno sis(es ): RADIOL OGY REPORT - FINAL EXAM: XR RIBS LT WO CHEST HISTOR Y: PLEURO DYNIA trauma left rib pain COMPAR LEANNA: None. TECHNI QUE: Three views of the left ribs were perfor med. FINDIN GS: See below. IMPRES ALEXIA: No eviden ce of fractu re of the left ribs or clavic le. Page 1 of 2 [facility] Patijo t Name: VIPIN CAGE Access ion #: [id number] Sex: F : 1960 4 Exam Date: 3:02 PM Exam Name: XR RIBS LT WO CHEST Admitt ing Diagno sis(es ): Create d and electr onical ly signed by: Han de la fuente MD Signed Date: 3:12 PM (CT) Dictat ed by: Han de la fuente MD DD: 3:12 PM (CT) DT: 3:12 PM (CT) Page [email or web address] (Imaging) [address] [place], [address], 09/23/2022 12:03:57 Result Notes None recorded. Problems Name Problem SNOMED Code Status Onset Date Resolution Date Notes Provider Name and Address Organization Details Recorded Time Fatigue 51651972 Active 2022 Not Available Count includes the [facility] 3 20:22:14 Osteoarthriti s of knee 081905798 Active 2022 Not Available Count includes the [facility] 3 20:22:14 Rib pain 088260926 Active 2022 Not Available Count includes the [facility] 3 20:22:14 Problem Notes None recorded. Procedures Surgical History Date Name Laterality Status Provider Name and Address Organization Details Recorded Time Hysterectomy, Partial completed Not Available Count includes the [facility] 09/12/2022 01:25:31 Knee completed Not Available Count includes the [facility] 08/2022 01:25:31 Imaging Results Imaging Date Name Status LastModified by Organization Details LastModified Time 09/09/2022 electrocardiogram completed MIGRATION. [id number] Z_hrgmc_g Internal [facility] [address] [facility], [facility] [address], [place], [address], 09/12/2022 01:27:28 09/09/2022 electrocardiogram completed MIGRATION. [id number] Z_hrgmc_g Internal Med [address] [facility] [address], [place], [address], 09/12/2022 01:27:28 09/20/2022 XR, chest completed [facility] (Imaging) [address] [place], [address], 10/04/2022 11:08:14 09/20/2022 XR, ribs, unilateral completed [email or web address] (Imaging) [address] [place], [address], 09/23/2022 12:03:57 Procedure Notes None recorded. Medical Equipment None Reported. Allergies Allergen ID Allergen Name Allergen Category Reaction Reaction Severity Criticality Documentation Date Start Date Code Code System Note Provider Name and Address Organization Details Recorded Time 45367 Product containin g penicilli n (product) medicatio n Not available Not available Not available 09/12/2022 28859 8001 SNOMED Not Available Count includes the [facility] 3 01:27:22 75072 honey preparati on food,medi cation Not available Not available Not available 09/12/2022 37497 9 RxNorm Not Available Count includes the [facility] 3 01:27:22 Medications Name Sig Start Date Stop Date Status Note LastModified by Organization Details LastModified Time tramadol 50 mg tablet TAKE 1 TABLET BY MOUTH THREE TIMES DAILY NEEDED active Not Available Not Available No t Available Celebrex 200 mg capsule Take 1 capsule every day by oral route for 30 days. 023 active Not Available Not Available Not Avai lable Vitals Date Recorded Body height Body mass index (BMI) Body weight Body temperature Heart rate Systolic blood pressure Diastolic blood pressure Provider Name and Address Organization Details Last Updated DateTime 3 165.1 cm 39.9 kg/m2 992514. 17 g 97.7 [degF] 76 /min 146 mm[Hg] 92 mm[Hg] KJ Longo [place] [facility] 3 13:58:04 Social History Question Answer Notes LastModified by Organizat ion Details LastModified Time Tobacco Smoking Status Never Smoker Not Available Count includes the [facility] 09/12/2022 01:25:09 Do You Have An Advance Directive? No [id number] Information not available 09/12/2022 What Is Your Level Of Alcohol Consumption? None MIGRATION.71302 [id number] Information not available 09/12/2022 Do You Wear A Helmet When Biking? No MIGRATION.17899 33915 Information not available 09/12/2022 Is Blood Transfusion Acceptable In An Emergency? Yes [email or web address] Information not available 09/20/2022 What Is Your Level Of Caffeine Consumption? Occasional MIGRATION.52739 54743 Information not available 09/12/2022 In The 14 Days Before Symptom Onset, Have You Had Close Contact With A Laboratory-confi rmed COVID-19 While That Case Was Ill? No MIGRATION.39878 07654 Information not available 09/12/2022 In The 14 Days Before Symptom Onset, Have You Had Close Contact With A Person Who Is Under Investigation For COVID-19 While That Person Was Ill? No MIGRATION.27414 77868 Information not available 09/12/2022 What Type Of Diet Are You Following? REGULAR MIGRATION.48184 75573 Information not available 09/12/2022 What Is The Highest Grade Or Level Of School You Have Completed Or The Highest Degree You Have Received? SF31020-4 MIGRATION.07409 50497 Information not available 09/12/2022 Have There Been Any Changes To Your Family Or Social Situation? No MIGRATION.59393 94298 Information not available 09/12/2022 What Is The Fluoride Status Of Your Home? Unknown MIGRATION.37536 68641 Information not available 09/12/2022 Do You Use Insect Repellent Routinely? No MIGRATION.14765 41722 Information not available 09/12/2022 Where Do You Live? [place]House MIGRATION.87526 55549 Information not available 09/12/2022 Do You Have A Medical Power Of Hoist Operator? No MIGRATION.81043 80405 Information not available 09/12/2022 What Was The Date Of Your Most Recent Tobacco Screening? 09/20/2022 [email or web address] Information not available 09/20/2022 How Many Children Do You Have? 2 MIGRATION.76960 58936 Information not available 09/12/2022 Do You Have Any Pets? No MIGRATION.86186 96093 Information not available 09/12/2022 What Is Your Relationship Status? MIGRATION.37424 91733 Information not available 09/12/2022 Do You Use Your Seat Belt Or Car Seat Routinely? Yes MIGRATION.10265 63074 Information not available 09/12/2022 Do You Have Smoke And Carbon Monoxide Detectors In Your Home? Yes MIGRATION.94513 43281 Information not available 09/12/2022 Are You Passively Exposed To Smoke? Yes MIGRATION.05022 42749 Information not available 09/12/2022 Are There Any Smokers In Your House? Yes MIGRATION.26519 68654 Information not available 09/12/2022 Do You Feel Stressed (tense, Restless, Nervous, Or Anxious, Or Unable To Sleep At Night)? [id number] MIGRATION.89576 54330 Information not available 09/12/2022 Do You Use Any Illicit Or Recreational Drugs? No MIGRATION.18157 29350 Information not available 09/12/2022 Do You Use Sunscreen Routinely? Yes Summer Time MIGRATION.60761 46006 Information not available 09/12/2022 Have You Recently Traveled Abroad? No MIGRATION.14084 45969 Information not available 09/12/2022 Do You Have Any Dietary Restrictions? No MIGRATION.91995 47157 Information not available 09/12/2022 Do You Or Have You Ever Used Any Other Forms Of Tobacco Or Nicotine? No MIGRATION.59249 93390 Information not available 09/12/2022 Sex: Female Functional Status Question Answer Note LastModified by Organizat ion Details LastModified Time What is your exercise level? Occasional [id number] 26 Information not available 09/12/2022 Mental Status None recorded. Family History Relationship Description Onset Age of this Age Resolved Age Notes LastModified by Organization Details LastModified Time Mother Arthritis [id number] [id number] Not available 09/12/2022 01:25:34 Mother Hypertensive disorder [id number] Not available 09/12/2022 01:25:34 Father Family history of malignant neoplasm [id number] Not available 09/12/2022 01:25:34 Medical History Condition Response ARTHRITIS Y HEADACHES/MIGRAINES Y Gynecological HistoryNo gynecological history recorded. Obstetrics History GPAL:G 0 P 0 0 0 0 Immunizations Vaccine Type Date Status Note Provider Nam e and Address Organization Details Recorded Time COVID-19, mRNA, LNP-S, PF, 10 mcg/0.2 mL dose, isabel-sucrose 10/28/2020 completed Not Available Count includes the [facility] 023 20:22:15 COVID-19, mRNA, LNP-S, PF, 10 mcg/0.2 mL dose, isabel-sucrose 10/01/2020 completed Not Available Count includes the [facility] 023 20:22:15 Past Encounters Encounter ID Performer Location Encounter Start Date Encounter Closed Date Diagnosis/Indication Diagnosis SNOMED-CT Code Diagnosis ICD10 Code Diagnosis Note [id number] Gm Singh MD [facility] Internal Med [address] [facility], [address] [place] [address] 09/20/2022 13:44:50 09/20/2022 14:28:42 Rib pain 203991207 R07.81 Health Concerns Section Related Observation LastModified by Organization Detai ls LastModified Time None Recorded Concern Status LastModified by Organization Details LastModified Time None Recorded Advance Directives Directive N: Payers Encounter Date Sequence Insurance Name Policy Number Policy Goldberg Covered Member ID Goldberg Member ID Guarantor Name 09/20/2022 1 [employer] - OPEN ACCESS PLUS Makenna Niles [id number] Makenna Cage Notes Date Note Type Note Provider Name and Address Organization Details Recorded Time 09/20/2022 text/html Mechanical fall couple days ago hit head not knocked out neck is fine thinks she saw stars no nausea or vomiting left ribs her blood breathing okay no other injury neck fine Gm Singh MD [address] [place] [address], [facility] [address], [place], [address], [facility] [employer] [facility] 09/21/2022 14:22:16 OBGyn Episode No OBEpisode recorded.
== END 2024-09-30 20:57 | disposition home or self-care (01) ==
PROVIDERS: Emergency Provider Emergency Medicine; PCP Internal Medicine
DX: S32.050A Wedge compression fracture of fifth lumbar vertebra, initial encounter for closed fracture (principal); W01.0XXA Fall on same level from slipping, tripping and stumbling without subsequent striking against object, initial encounter
CPT/HCPCS: 72131; 72192; 96372; 99284; A9270; J1885

== ENCOUNTER 2024-10-08 10:38 | Outpatient (CLI) | payer OTHER, SELFPAY ==
--- NOTE | ~2024-10-08 | MR_ITS ---
EXAMINATION: MR lumbar spine wo con DATE: 10/08/2024 11:07 INDICATION: Low back pain. Left hip pain. TECHNIQUE: Magnetic resonance imaging (MRI) of the lumbar spine was performed without intravenous con trast. Sequences included sagittal T2-weighted FSE, sagittal T2-weighted FS FSE, sagittal T1-weighted FSE, and axial T2-weighted FSE. COMPARISON: CT lumbar spine 09/30/2024 FINDINGS: There is 3 mm anterolisthesis of L4 on L5. Vertebral body heights are normal. There is mild ly decreased disc height at L4-L5. There is moderately decreased disc height at L5-S1 with interbody fusion. The distal spinal cord signal intensity is normal. The conus medullaris is at L1. There are c ysts in left kidney measuring up to 4.6 cm. The following disc levels are specifically discussed: L1-L2: The disc does not extend beyond the endplate margin. There is severe bilateral facet joint ost eoarthritis. There is mild bilateral neural foraminal stenosis. There is no central canal stenosis. L2-L3: The disc does not extend beyond the endplate margin. There is severe bilateral facet joint ost eoarthritis. There is mild bilateral neural foraminal stenosis. There is no central canal stenosis. L3-L4: The disc is bulging. There is severe bilateral facet joint osteoarthritis. There is mild bilat eral neural foraminal stenosis. There is no central canal stenosis. L4-L5: The disc does not extend beyond the endplate margin. There is ankylosis of the facet joints wi th severe hypertrophy. There is no neural foraminal stenosis. There is no central canal stenosis. L5-S1: The disc is bulging. There is ankylosis of the facet joints with moderate hypertrophy. There i s mild bilateral neural foraminal stenosis. There is mild central canal stenosis. IMPRESSION: 1. Mild lumbar spondylosis. Reviewed, dictated and finalized at location A. IMPRESSION: 1. Mild lumbar spondylosis.
== END 2024-10-08 10:39 | disposition home or self-care (01) ==
PROVIDERS: PCP Internal Medicine; Visit Provider Internal Medicine
DX: M48.56XD Collapsed vertebra, not elsewhere classified, lumbar region, subsequent encounter for fracture with routine healing (principal); M47.896 Other spondylosis, lumbar region
CPT/HCPCS: 72148

== ENCOUNTER 2024-11-04 12:43 | Outpatient (CLI) | payer OTHER, SELFPAY ==
--- NOTE | ~2024-11-04 | US_ITS ---
Renal-Bladder ultrasound Clinical History: Renal cyst Technique: Real-time sonographic imaging of the kidneys and urinary bladder was performed. Findings: The right kidney measures 11.6 cm in length and the left kidney measures 10.1 cm. There is no hydronephrosis or renal calculus identified. Renal cortical echogenicity is within normal limits. Exophytic simple left lower pole renal cyst measures 4.6 cm in diameter. The urinary bladder is moderately distended at the time of this exam. No intraluminal echoes are iden tified. No abnormal wall thickening is seen. Impression: 4.6 cm left lower pole renal cyst. Reviewed, dictated and finalized at location . Impression: 4.6 cm left lower pole renal cyst.
== END 2024-11-04 12:44 | disposition home or self-care (01) ==
LOC: GOSHIMG 12:44
PROVIDERS: PCP Internal Medicine; Visit Provider Internal Medicine
DX: N28.1 Cyst of kidney, acquired (principal)
CPT/HCPCS: 76775